=== PATIENT | male | born 2000 | race Caucasian/White ===

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

== ENCOUNTER 2022-01-11 00:24 | Inpatient (IN) | payer MEDICAID ==
[~2022-01-11] VITALS: Ht 185.4 cm; Wt 75.9 kg
[2022-01-11] VITALS (657 sets, daily range): BP systolic 17–108; BP diastolic 44–78; PULSE 75–81; TEMP 37; O2SAT 50–100
[~2022-01-11 00:24] MED LIST changes: +ATARAX 25MG25 MG/TAB PO
[2022-01-11 00:42] LABS: HEMATOCRIT 45.9 % (36.0-47.0); HEMOGLOBIN 13.8 g/dl (12.5-16.1); MEAN CELL VOLUME 101 fl (80.0-95.0); MEAN CORPUSCULAR HEMOGLOBIN 30 pg (26-32); MEAN CORPUSCULAR HGB CONC 30 g/dl (33.0-37.0); MEAN PLATELET VOLUME 10.2 fl (7.4-10.4); PLATELET COUNT 180 K/mm3 (130-400); RED BLOOD COUNT 4.54 M/mm3 (4.20-5.60); REDCELL DISTRIBUTION WIDTH-CV 12.4 % (11.5-14.5)
[2022-01-11 00:57] LABS: ALBUMIN 3.5 gm/dL (3.5-5.0); BILIRUBIN,TOTAL 0.6 mg/dL (0.2-1.2); CREATININE, serum 1.65 mg/dL (0.72-1.25); POTASSIUM 3.7 mmol/L (3.5-4.5); TOTAL PROTEIN 6.2 gm/dL (6.2-8.1)
[2022-01-11 01:06] LABS: TROPONIN-I 1.351 ng/mL (0.00-0.033)
[2022-01-11 01:08] LABS: INR 1.5 (0.8-3.0); PROTHROMBIN TIME 16.2 SECONDS (9.7-12.8)
[2022-01-11 01:11] LABS: PARTIAL THROMBOPLASTIN TIME 58.8 SECONDS (26.0-37.0)
[2022-01-11 01:45] LABS: BAND 2 % (0-10); EOSINOPHIL 2 % (0-4); LYMPHOCYTE 77 % (20.0-51.0); NEUTROPHILS 14 % (42.0-75.2); PLATELET ESTIMATE NORMAL (NORMAL)
[2022-01-11 01:48] LABS: ARTERIAL BLD GAS O2 SATURATION 98.5 % (92-100); ARTERIAL BLD GAS TCO2 CT 6.8; ARTERIAL BLOOD GAS BASE EXCESS -32.3 (-2-2); ARTERIAL BLOOD GAS HCO3 5.3 meq/L (22-26); ARTERIAL BLOOD GAS PCO2 48.5 mmHg (35-45)
[2022-01-11 01:49] LABS: ARTERIAL BLOOD GAS PO2 250.2 mmHg (80-100); ARTERIAL BLOOD GAS pH 6.66 (7.35-7.45)
[2022-01-11 03:34] LABS: ARTERIAL BLD GAS O2 SATURATION 99.5 % (92-100); ARTERIAL BLD GAS TCO2 CT 15.8; ARTERIAL BLOOD GAS BASE EXCESS -11.3 (-2-2); ARTERIAL BLOOD GAS HCO3 14.7 meq/L (22-26); ARTERIAL BLOOD GAS PCO2 34.4 mmHg (35-45); ARTERIAL BLOOD GAS pH 7.25 (7.35-7.45)
[2022-01-11 03:38] LABS: ARTERIAL BLOOD GAS PO2 404.9 mmHg (80-100)
--- NOTE | 2022-01-11 04:35 | NUR ---
Patient arrived to unit accompanied by RT and Jenny, ED RN. Patient VSS upon arrival. Patient intubated with 7.0 ETT on AC mode with 400TV, peep of 6, fiow of 40% and RR of 16. ETT at 26 at the teeth. OG clamped [place] catheter patent to dependent drainage with clear yellow urine noted. Amio gtt running at 16.7mls/hr, propofol gtt running at 4mls/hr, bicarb gtt at 150mls/hr and levophed gtt running at 28.8mls/hr. Patient has 20g in LAC and RAC with IO in RLA and RIJ central line. Patient is unable to follow commands and does not respond to gag reflex or pain stimulation. Patient has petechia present on face and eyes. Ligature fernando noted around neck d/t attempted suicide by hanging. Patient grandmother and aunt at bedside. Assessment and admission intake complete at this time. Will resume care of patient.
--- NOTE | 2022-01-11 05:20 | NUR ---
[facility] notified of pt status. TN will follow. Reference #[id number].
[2022-01-11 06:17] LABS: ALBUMIN 4.1 gm/dL (3.5-5.0); CALCIUM 7.5 mg/dL (8.4-10.2); CREATININE, serum 1.52 mg/dL (0.72-1.25); MAGNESIUM 2.5 mg/dL (1.7-2.2); PHOSPHOROUS 6.5 mg/dL (2.3-4.7); POTASSIUM 5.3 mmol/L (3.5-4.5); TOTAL PROTEIN 7.2 gm/dL (6.2-8.1)
--- NOTE | 2022-01-11 06:44 | NUR ---
Sedation vacation not complete at this time d/t patient being unstable and intubated for less than 12 hours.
--- NOTE | 2022-01-11 06:50 | NUR ---
Suicide care plan process interventions completed at this time d/t being unable to properly assess patient d/t intubation and sedation status. Patient also exhibits zero response to stimulation GCS of 2 at this time.
--- NOTE | 2022-01-11 09:26 | NUR ---
idea worker met with patient's grandmother, Alberta, who is at bedside and offered emotional support. Worker was asked to cancel Mile's (patient's mother) surgery that was scheduled for this morning.
[2022-01-11 09:43] LABS: BASO # 0.1 K/mm3 (0.0-0.2); BASO % 0.4 % (0.0-2.0); EOS # 0.1 K/mm3 (0.0-0.7); EOS % 0.3 % (0.0-4.0); GRAN # 27.3 K/mm3 (1.4-6.5); GRAN % 88.3 % (42.2-75.2); LYMPH # 1.9 K/mm3 (1.2-3.4); LYMPH % 6.1 % (20.0-51.0); MEAN CORPUSCULAR HGB CONC 34 g/dl (33.0-37.0); MONO % 3.4 % (1.7-9.3); PLATELET COUNT 268 K/mm3 (130-400); RED BLOOD COUNT 5.67 M/mm3 (4.20-5.60); REDCELL DISTRIBUTION WIDTH-CV 12.8 % (11.5-14.5)
[2022-01-11 09:47] LABS: HEMOGLOBIN 17.1 g/dl (12.5-16.1); MEAN CELL VOLUME 90 fl (80.0-95.0); MEAN CORPUSCULAR HEMOGLOBIN 30 pg (26-32)
[2022-01-11 09:49] LABS: ARTERIAL BLD GAS O2 SATURATION 98.9 % (92-100); ARTERIAL BLD GAS TCO2 CT 20.3; ARTERIAL BLOOD GAS HCO3 19.4 meq/L (22-26); ARTERIAL BLOOD GAS PCO2 29.2 mmHg (35-45); ARTERIAL BLOOD GAS pH 7.44 (7.35-7.45)
[2022-01-11 09:50] LABS: ARTERIAL BLOOD GAS PO2 144.8 mmHg (80-100)
[2022-01-11 10:07] LABS: HEMATOCRIT 49.1 % (36.0-47.0); HEMOGLOBIN 17.4 g/dl (12.5-16.1)
[2022-01-11 10:20] LABS: CALCIUM 7.5 mg/dL (8.4-10.2); CREATININE, serum 1.64 mg/dL (0.72-1.25); POTASSIUM 3.7 mmol/L (3.5-4.5)
[2022-01-11 10:22] LABS: BAND 26 % (0-10); LYMPHOCYTE 13 % (20.0-51.0); NEUTROPHILS 62 % (42.0-75.2); PLATELET ESTIMATE NORMAL (NORMAL)
--- NOTE | 2022-01-11 11:12 | NUR ---
Miller Apprentice followed up with Alberta, patient's grandmother who is at bedside to offer emotional support as well as establish legal next of kin. Alberta advised that she and patient's aunt, Cristiana were patient's legal guardians when he was a child. Alberta advised nothing was ever filed with the court to establish guardianship as an adult. BRENDA advised Alberta that per the [place] Guardianship Program, unless something was filed when patient turned 20, they were no longer patient's legal guardian and Alberta verbalized understanding. BRENDA advised this meant patient's mother, Mile would be patient's legal next of kin and Alberta verbalized understanding. BRENDA updated RN and ICU Neurology Physician Assistant.
[2022-01-11 14:38] LABS: COLLECTION METHOD CATHETER
[2022-01-11 14:40] LABS: HEMATOCRIT 49.9 % (36.0-47.0); HEMOGLOBIN 17.4 g/dl (12.5-16.1)
[2022-01-11 14:47] LABS: MUCOUS Present (NOT PRESENT); PH 5 (5-8); SQUAMOUS EPITHELIAL None Seen /hpf (0-10); URINE APPEARANCE Cloudy (CLEAR/HAZY); URINE BACTERIA None Seen /hpf (NONE SEEN); URINE BILIRUBIN Negative (NEGATIVE); URINE BLOOD 3+ (NEGATIVE); URINE COLOR Amber (YELLOW); URINE GLUCOSE 2+ (NEGATIVE); URINE KETONE Negative (NEGATIVE); URINE LEUKOCYTE ESTERASE Negative (NEGATIVE); URINE NITRATE Negative (NEGATIVE); URINE PROTEIN(semi-quant) 3+ (NEGATIVE); URINE RBC 20-50 /hpf (0-2); URINE UROBILINOGEN Negative (NEGATIVE)
[2022-01-11 14:56] LABS: CALCIUM 7.6 mg/dL (8.4-10.2); CREATININE, serum 1.53 mg/dL (0.72-1.25); POTASSIUM 3.7 mmol/L (3.5-4.5)
[2022-01-11 14:57] LABS: TRICYCLIC ANTIDEPRESS URINE NEGATIVE
[2022-01-11 14:57] LABS: ARTERIAL BLD GAS O2 SATURATION 99.5 % (92-100); ARTERIAL BLD GAS TCO2 CT 19.8; ARTERIAL BLOOD GAS BASE EXCESS -2.1 (-2-2); ARTERIAL BLOOD GAS PCO2 25.7 mmHg (35-45); ARTERIAL BLOOD GAS pH 7.49 (7.35-7.45)
[2022-01-11 14:58] LABS: ARTERIAL BLOOD GAS PO2 277.4 mmHg (80-100)
--- NOTE | 2022-01-11 16:30 | NUR ---
Patient's grandmother Alberta asks this author if the patient's mother can give decision making rights to herself or the patient's aunt, Diaz. During conversation the patient's mother entered room & Alberta stopped the conversation. This author will seek expert advice on decision making capacity for this situation. 1750 - This author discussed case with senior branch [facility]. Patient's mother can reliquinsh decision making rights & assign to another person. Mother must verbalize this to two hospital witnesses & may change her mind on reliquishment at anytime. Hospital witnesses must document the conversation each time. If the patient's mother is not able to be reached then the patient's grandmother or aunt may make decisions in mother's absence based on previous statement. 1820 - Unable to update patient's grandmother on decision making hierarchy. Update provided with patient's aunt, Diaz in private. Understanding expressed. Offered support & discussed visitation plan for the evening. [facility] department traffic freight router.
[2022-01-11 17:40] LABS: CALCIUM 7.4 mg/dL (8.4-10.2); CREATININE, serum 1.84 mg/dL (0.72-1.25); POTASSIUM 4.5 mmol/L (3.5-4.5)
--- NOTE | 2022-01-11 18:10 | NUR ---
PATIENT'S MOTHER, XIOMARA, GIVES PERMISSION FOR HER SISTER, KEENA AND HER MOTHER, KIRSTEN, TO MAKE DECISIONS REGARDING HER SON'S CARE. THIS DIRECTION WAS GIVEN VERBALLY TO THIS RN AND YASEMIN Evans RN
--- NOTE | 2022-01-11 18:10 | NUR ---
PTS MOTHER, XIOMARA, STATES THAT SHE WISHES FOR HER SISTER KEENA AND MOTHER KIRSTEN TO MAKE DECISIONS FOR PATIENT IN THE EVENT THAT SHE IS NOT AVAILABLE. THIS RN AND DAYDAY Cee RN PRESENT IN ROOM
--- NOTE | 2022-01-11 20:00 | NUR ---
Assessment complete and charted. Patient nonresponsive, no coughing against ventilator, no movement with repositioning, no arousal to sternal rub. Pupils pinpoint nonreactive. Rectal tube with loose liquid black stool present. Patient having increased oral secretions. OG clamped. Spoke with [facility]jo [facility] to start OG to LIS. Immediate 200 mls out of OG. Will continue with LIS and monitor output.
[2022-01-11 20:07] LABS: HEMATOCRIT 49.2 % (36.0-47.0)
[2022-01-11 20:21] LABS: CREATININE, serum 1.99 mg/dL (0.72-1.25); POTASSIUM 4.4 mmol/L (3.5-4.5)
[2022-01-11 22:10] LABS: HEMOGLOBIN 16.7 g/dl (12.5-16.1)
[2022-01-11 22:28] LABS: CALCIUM 6.6 mg/dL (8.4-10.2); CREATININE, serum 1.82 mg/dL (0.72-1.25)
[2022-01-11 22:39] LABS: ARTERIAL BLD GAS O2 SATURATION 98.4 % (92-100); ARTERIAL BLD GAS TCO2 CT 19.4; ARTERIAL BLOOD GAS BASE EXCESS -5.2 (-2-2); ARTERIAL BLOOD GAS HCO3 18.4 meq/L (22-26); ARTERIAL BLOOD GAS PCO2 31.6 mmHg (35-45); ARTERIAL BLOOD GAS pH 7.38 (7.35-7.45)
[2022-01-11 22:41] LABS: ARTERIAL BLOOD GAS PO2 123.9 mmHg (80-100)
[2022-01-12] VITALS (986 sets, daily range): BP systolic 88–160; BP diastolic 61–113; PULSE 88–189; TEMP 98.6–99.1; O2SAT 55–100
[2022-01-12 02:04] LABS: HEMATOCRIT 49.7 % (36.0-47.0); HEMOGLOBIN 17.3 g/dl (12.5-16.1)
[2022-01-12 02:20] LABS: CALCIUM 6.9 mg/dL (8.4-10.2); CREATININE, serum 1.52 mg/dL (0.72-1.25); POTASSIUM 4.1 mmol/L (3.5-4.5)
--- NOTE | 2022-01-12 03:40 | NUR ---
ALARMS TESED AND WORKING. FAMILY X 1 AT BEDSIDE.
[2022-01-12 05:52] LABS: ARTERIAL BLD GAS TCO2 CT 18.7; ARTERIAL BLOOD GAS BASE EXCESS -5.6 (-2-2); ARTERIAL BLOOD GAS HCO3 17.8 meq/L (22-26); ARTERIAL BLOOD GAS PCO2 30.5 mmHg (35-45); ARTERIAL BLOOD GAS PO2 81.3 mmHg (80-100); ARTERIAL BLOOD GAS pH 7.38 (7.35-7.45)
[2022-01-12 06:17] LABS: HEMATOCRIT 50.2 % (36.0-47.0); MEAN CELL VOLUME 89 fl (80.0-95.0); MEAN CORPUSCULAR HEMOGLOBIN 30 pg (26-32); MEAN CORPUSCULAR HGB CONC 34 g/dl (33.0-37.0); MEAN PLATELET VOLUME 9.9 fl (7.4-10.4); PLATELET COUNT 234 K/mm3 (130-400); RED BLOOD COUNT 5.63 M/mm3 (4.20-5.60); REDCELL DISTRIBUTION WIDTH-CV 13.1 % (11.5-14.5)
[2022-01-12 06:25] LABS: INR 2.3 (0.8-3.0); PROTHROMBIN TIME 26.2 SECONDS (9.7-12.8)
[2022-01-12 06:31] LABS: ALBUMIN 3.2 gm/dL (3.5-5.0); BILIRUBIN,TOTAL 0.8 mg/dL (0.2-1.2); CALCIUM 7.1 mg/dL (8.4-10.2); CREATININE, serum 1.5 mg/dL (0.72-1.25); MAGNESIUM 1.8 mg/dL (1.7-2.2); PHOSPHOROUS 4.1 mg/dL (2.3-4.7); POTASSIUM 4.1 mmol/L (3.5-4.5); TOTAL PROTEIN 5.9 gm/dL (6.2-8.1)
[2022-01-12 06:39] LABS: BAND 26 % (0-10); LYMPHOCYTE 10 % (20.0-51.0); NEUTROPHILS 58 % (42.0-75.2); PLATELET ESTIMATE NORMAL (NORMAL)
--- NOTE | 2022-01-12 07:12 | NUR ---
Report given to YUDI Porras
[2022-01-12 07:59] LABS: PATHOLOGY DIFF REVIEW OK +
[2022-01-12 08:21] LABS: CREATININE, serum 1.43 mg/dL (0.72-1.25); POTASSIUM 4.3 mmol/L (3.5-4.5)
--- NOTE | 2022-01-12 10:00 | NUR ---
REPORT RECEIVED FROM AUDREY BAGLEY. CARE ASSUMED. AUNTS BEDSIDE. VSS. WILL CONTINUE TO [facility].
[2022-01-12 11:02] LABS: CALCIUM 7.2 mg/dL (8.4-10.2); CREATININE, serum 1.45 mg/dL (0.72-1.25); POTASSIUM 4.2 mmol/L (3.5-4.5)
--- NOTE | 2022-01-12 12:13 | NUR ---
NOTIFIED OF HTN. ORDER TO INCREASE PROPOFOL. IF BP STILL ELEVATED AFTER INCREASES OF PROPOFOL WILL START VERSED DRIP. IF VERSED UP TO 5MG/HR AND PT STILL HYPERTENSIVE WILL CONSIDER IV METOPROLOL.
[2022-01-12 13:38] LABS: CALCIUM 7.3 mg/dL (8.4-10.2); CREATININE, serum 1.5 mg/dL (0.72-1.25); POTASSIUM 4.4 mmol/L (3.5-4.5)
--- NOTE | 2022-01-12 14:16 | NUR ---
PT HAD BP'S IN THE 80'S. LEVO RESTARTED AT 0.3MCG. ABOUT 10 MINS LATER HR JUMP TO 200. LEVO STOPPED AND PROPOFOL INCREASED. PT NOW SR AT 107, AND BP 115/67. AND NOTIFIED.
[2022-01-12 16:44] LABS: CALCIUM 7.6 mg/dL (8.4-10.2); CREATININE, serum 1.42 mg/dL (0.72-1.25); POTASSIUM 4.4 mmol/L (3.5-4.5)
--- NOTE | 2022-01-12 19:26 | NUR ---
Alarms tested and working. RN at bedside, oral care done at this time. Family X4 at bedside.
[2022-01-12 19:57] LABS: CALCIUM 7.8 mg/dL (8.4-10.2); CREATININE, serum 1.35 mg/dL (0.72-1.25); PHOSPHOROUS 3.2 mg/dL (2.3-4.7); POTASSIUM 4.6 mmol/L (3.5-4.5)
--- NOTE | 2022-01-12 20:29 | NUR ---
Assessment complete and charted. Patient started on versed and propofol increased due to tachycardia. Family at bedside. Call light in reach.
[2022-01-12 22:55] LABS: CALCIUM 7.4 mg/dL (8.4-10.2); CREATININE, serum 1.29 mg/dL (0.72-1.25); POTASSIUM 4.4 mmol/L (3.5-4.5)
[2022-01-13] VITALS (1045 sets, daily range): BP systolic 79–146; BP diastolic 52–93; PULSE 91–198; TEMP 97.2–99.7; O2SAT 83–100
--- NOTE | 2022-01-13 01:35 | NUR ---
Patient went into SVT at 0116. Sustained for 11 mintues. Spoke with Jojo NORRIS and cardiology Dr. Irwin. Started on esmolol.
--- NOTE | 2022-01-13 01:37 | NUR ---
Patient BP do not tolerate esmolol. Gtt stopped at this time. Jjoo NORRIS aware.
--- NOTE | 2022-01-13 01:46 | NUR ---
CALLED AWAY FOR EMERGENCY.
--- NOTE | 2022-01-13 01:54 | NUR ---
Duoneb not given at this time per pt condition. Pt HR has increased as high as 190 in the last hour.
--- NOTE | 2022-01-13 05:47 | NUR ---
Pupils unequal large nonreactive. Jojo NORRIS contacted and CT ordered.
[2022-01-13 05:52] LABS: HEMATOCRIT 43.4 % (36.0-47.0); MEAN CELL VOLUME 89 fl (80.0-95.0); MEAN CORPUSCULAR HEMOGLOBIN 30 pg (26-32); MEAN CORPUSCULAR HGB CONC 34 g/dl (33.0-37.0); MEAN PLATELET VOLUME 10.5 fl (7.4-10.4); PLATELET COUNT 151 K/mm3 (130-400); RED BLOOD COUNT 4.87 M/mm3 (4.20-5.60); REDCELL DISTRIBUTION WIDTH-CV 13.5 % (11.5-14.5)
[2022-01-13 05:56] LABS: HEMOGLOBIN 14.7 g/dl (12.5-16.1)
[2022-01-13 06:05] LABS: ALBUMIN 2.8 gm/dL (3.5-5.0); BILIRUBIN,TOTAL 0.8 mg/dL (0.2-1.2); CALCIUM 7.7 mg/dL (8.4-10.2); CREATININE, serum 1.14 mg/dL (0.72-1.25); PHOSPHOROUS 1.5 mg/dL (2.3-4.7); POTASSIUM 4.1 mmol/L (3.5-4.5); TOTAL PROTEIN 5.2 gm/dL (6.2-8.1)
[2022-01-13 06:20] LABS: BAND 37 % (0-10); LYMPHOCYTE 14 % (20.0-51.0); NEUTROPHILS 43 % (42.0-75.2)
[2022-01-13 06:21] LABS: PLATELET ESTIMATE NORMAL (NORMAL)
--- NOTE | 2022-01-13 07:29 | NUR ---
Report given to YUDI Porras. Patient unable to regulate VS during night. Patient temp on rectal probe flucutated between 100.6 and 97.0 throughout night. Blood pressures ranging from 70s/40s to 190s/110s. Patient also had runs of SVT during night requiring short term emsolol gtt. Patient pupils were found to be dilated and unequal this AM. Hospitalist notified and seen patient at bedside. CT scan ordered. Patient remains unresponsive to all stimuli. Respiratory rate 24-29 throughout night. Minimal urine output during night. Urine tea colored. Grandmother remained at beside. Grandmother asked "what future may look like" if they continue cares. All questioned answered. All updateds regarding patient status were provided to Jojo NORRIS.
--- NOTE | 2022-01-13 11:17 | NUR ---
Pt's mother Mile on phone stated "I relinquish all decision making for Celestine and give it to my mother Alberta" - YUDI Cruz, MD Francisco, BRENDA Tate and myself in room at the time to confirm. Pt's grandmother Alberta informed MD Luca at about pt's drivers license indicating Celestine's wish to be an organ donor. [facility] team notified.
--- NOTE | 2022-01-13 12:00 | NUR ---
Aristides from the [facility] team phoned in to provide update and orders: discontinue sedation so that neurological assessment could be completed when the team arrives here at about 1330 today
--- NOTE | 2022-01-13 12:07 | NUR ---
Initial visit: Oracle Ebs Developer: Family requested Stunt Man to offer prayer and God's love for Celestine. Stunt Man prayed, offered "The Lord's Prayer," and The Psalm. Stunt Man listened and offered empathy and kindness.
--- NOTE | 2022-01-13 13:25 | NUR ---
SW myself, Nancy BAGLEY, eVrn BAGLEY, Dr. Arlene LOCKE, witnessed via phone, Mother Mile informing care team that the she religuish her rights to Alberta for pt.
--- NOTE | 2022-01-13 14:21 | NUR ---
[facility] present Pt's grandmother/decision-maker Alberta at bedside
[2022-01-13 17:37] LABS: HEMATOCRIT 41.8 % (36.0-47.0); HEMOGLOBIN 14.1 g/dl (12.5-16.1); MEAN CELL VOLUME 89 fl (80.0-95.0); MEAN CORPUSCULAR HEMOGLOBIN 30 pg (26-32); MEAN CORPUSCULAR HGB CONC 34 g/dl (33.0-37.0); MEAN PLATELET VOLUME 10.7 fl (7.4-10.4); PLATELET COUNT 137 K/mm3 (130-400); RED BLOOD COUNT 4.69 M/mm3 (4.20-5.60); REDCELL DISTRIBUTION WIDTH-CV 13.7 % (11.5-14.5)
[2022-01-13 17:48] LABS: INR 1.7 (0.8-3.0); PROTHROMBIN TIME 19.2 SECONDS (9.7-12.8)
[2022-01-13 18:07] LABS: ALBUMIN 2.7 gm/dL (3.5-5.0); BILIRUBIN,TOTAL 0.9 mg/dL (0.2-1.2); MAGNESIUM 2.2 mg/dL (1.7-2.2); TOTAL PROTEIN 4.8 gm/dL (6.2-8.1)
[2022-01-13 18:08] LABS: BAND 47 % (0-10); LYMPHOCYTE 11 % (20.0-51.0); METAMYELOCYTE 1 % (0-0); NEUTROPHILS 38 % (42.0-75.2); PLATELET ESTIMATE NORMAL (NORMAL); TOXIC GRANULATION PRESENT
[2022-01-13 18:21] LABS: BILIRUBIN,DIRECT 0.5 mg/dL (0.0-0.5)
--- NOTE | 2022-01-13 19:00 | NUR ---
Received report from YUDI Porras.
--- NOTE | 2022-01-13 19:30 | NUR ---
Patient resting quietly in bed. Remains on ventilator. All vitals within normal limits. Continues to receive amiodarone, esmolol, and propofol drips. D5W infusing at 75 mL/hr. Patient's family at bedside. Questions encouraged and answered. Bed in lowest position, all alarms on.
[2022-01-13 20:12] LABS: COLLECTION METHOD CATHETER
[2022-01-13 20:22] LABS: AMORPHOUS CRYSTAL Present (NOT PRESENT); MUCOUS Present (NOT PRESENT); PH 5 (5-8); SQUAMOUS EPITHELIAL None Seen /hpf (0-10); URINE APPEARANCE Turbid (CLEAR/HAZY); URINE BACTERIA Moderate /hpf (NONE SEEN); URINE BILIRUBIN Negative (NEGATIVE); URINE BLOOD 3+ (NEGATIVE); URINE COLOR Yellow (YELLOW); URINE GLUCOSE Negative (NEGATIVE); URINE KETONE Negative (NEGATIVE); URINE LEUKOCYTE ESTERASE Trace (NEGATIVE); URINE NITRATE Negative (NEGATIVE); URINE PROTEIN(semi-quant) Negative (NEGATIVE); URINE RBC >50 /hpf (0-2); URINE UROBILINOGEN Negative (NEGATIVE)
[2022-01-14] VITALS (581 sets, daily range): BP systolic 141–164; BP diastolic 78–120; PULSE 85–96; TEMP 97.9–98.5; O2SAT 97–100
[2022-01-14 00:55] LABS: ALBUMIN 2.7 gm/dL (3.5-5.0); BILIRUBIN,TOTAL 0.8 mg/dL (0.2-1.2); MAGNESIUM 2.2 mg/dL (1.7-2.2); TOTAL PROTEIN 5.5 gm/dL (6.2-8.1)
[2022-01-14 00:57] LABS: HEMATOCRIT 40.5 % (36.0-47.0); HEMOGLOBIN 13.9 g/dl (12.5-16.1); MEAN CELL VOLUME 89 fl (80.0-95.0); MEAN CORPUSCULAR HEMOGLOBIN 31 pg (26-32); MEAN CORPUSCULAR HGB CONC 34 g/dl (33.0-37.0); MEAN PLATELET VOLUME 10.6 fl (7.4-10.4); PLATELET COUNT 123 K/mm3 (130-400); RED BLOOD COUNT 4.54 M/mm3 (4.20-5.60); REDCELL DISTRIBUTION WIDTH-CV 13.7 % (11.5-14.5)
[2022-01-14 01:06] LABS: INR 1.6 (0.8-3.0); PROTHROMBIN TIME 17.7 SECONDS (9.7-12.8)
[2022-01-14 01:37] LABS: BILIRUBIN,DIRECT 0.4 mg/dL (0.0-0.5)
[2022-01-14 01:51] LABS: BAND 24 % (0-10); LYMPHOCYTE 1 % (20.0-51.0); NEUTROPHILS 72 % (42.0-75.2)
[2022-01-14 01:52] LABS: METAMYELOCYTE 1 % (0-0); PLATELET ESTIMATE DECREASED (NORMAL)
--- NOTE | 2022-01-14 05:00 | NUR ---
Patient pending organ donation. No sedation vacation performed.
[2022-01-14 06:31] LABS: INR 1.6 (0.8-3.0); PROTHROMBIN TIME 17.5 SECONDS (9.7-12.8)
[2022-01-14 06:38] LABS: HEMOGLOBIN 13.6 g/dl (12.5-16.1); MEAN CELL VOLUME 90 fl (80.0-95.0); MEAN CORPUSCULAR HEMOGLOBIN 30 pg (26-32); MEAN CORPUSCULAR HGB CONC 33 g/dl (33.0-37.0); MEAN PLATELET VOLUME 10.6 fl (7.4-10.4); PLATELET COUNT 134 K/mm3 (130-400); RED BLOOD COUNT 4.55 M/mm3 (4.20-5.60); REDCELL DISTRIBUTION WIDTH-CV 13.8 % (11.5-14.5)
[2022-01-14 06:40] LABS: ALBUMIN 2.8 gm/dL (3.5-5.0); BILIRUBIN,DIRECT 0.4 mg/dL (0.0-0.5); BILIRUBIN,TOTAL 0.6 mg/dL (0.2-1.2); MAGNESIUM 2.3 mg/dL (1.7-2.2); TOTAL PROTEIN 5.7 gm/dL (6.2-8.1)
--- NOTE | 2022-01-14 07:20 | NUR ---
Report given to YUDI García.
--- NOTE | 2022-01-14 07:45 | NUR ---
PT is laying in bed unresponsive on ventilator. VSS. Drips and lines verified. Family member x1 bedside. [place] [facility] present. Patient to head to PACU at noon to begin comfort measures.
[2022-01-14 07:52] LABS: BAND 48 % (0-10); BASOPHIL 1 % (0-2); LYMPHOCYTE 6 % (20.0-51.0); NEUTROPHILS 44 % (42.0-75.2); PLATELET ESTIMATE NORMAL (NORMAL)
[2022-01-14 08:46] LABS: COLLECTION METHOD CATHETER
[2022-01-14 09:02] LABS: PH 5 (5-8); SQUAMOUS EPITHELIAL None Seen /hpf (0-10); URINE APPEARANCE Clear (CLEAR/HAZY); URINE BACTERIA None Seen /hpf (NONE SEEN); URINE BILIRUBIN Negative (NEGATIVE); URINE BLOOD 3+ (NEGATIVE); URINE COLOR Straw (YELLOW); URINE GLUCOSE 3+ (NEGATIVE); URINE KETONE Negative (NEGATIVE); URINE LEUKOCYTE ESTERASE Negative (NEGATIVE); URINE NITRATE Negative (NEGATIVE); URINE PROTEIN(semi-quant) Negative (NEGATIVE); URINE UROBILINOGEN Negative (NEGATIVE); URINE WBC 0-2 /hpf (0-2)
--- NOTE | 2022-01-14 13:03 | NUR ---
1145 - PT HOOKED UP TO TRANSPORT MONITOR. LEFT ICU ENROUTE TO PACU/OR COMFORT CARE MEASURES INITIATED. RT EXTUBATED PT AT 1212. CEASE IN VITAL SIGNS AT 1222. TIME OF . BODY THEN MOVED TO OR FOR ORGAN PROCUREMENT.
== END 2022-01-14 18:12 | disposition expired | DRG 296 ==
LOC: COL.ER 00:24 → ICU 03:00
PROVIDERS: Emergency Medicine; Internal Medicine Pulmonary Disease; Nurse Practitioner Family; Student in an Organized Health Care Education/Training Program; ADMIT Internal Medicine
PROC: 5A1945Z Respiratory Ventilation, 24-96 Consecutive Hours (ICD-10-PCS; principal; 2022-01-11)
PROC: 5A12012 Performance of Cardiac Output, Single, Manual (ICD-10-PCS; 2022-01-11)
PROC: 03HY32Z Insertion of Monitoring Device into Upper Artery, Percutaneous Approach (ICD-10-PCS; 2022-01-12)
PROC: 0BC98ZZ Extirpation of Matter from Lingula Bronchus, Via Natural or Artificial Opening Endoscopic (ICD-10-PCS; 2022-01-13)
PROC: 0BC88ZZ Extirpation of Matter from Left Upper Lobe Bronchus, Via Natural or Artificial Opening Endoscopic (ICD-10-PCS; 2022-01-13)
PROC: 0BC58ZZ Extirpation of Matter from Right Middle Lobe Bronchus, Via Natural or Artificial Opening Endoscopic (ICD-10-PCS; 2022-01-13)
PROC: 0BC68ZZ Extirpation of Matter from Right Lower Lobe Bronchus, Via Natural or Artificial Opening Endoscopic (ICD-10-PCS; 2022-01-13)
DX: I46.9 Cardiac arrest, cause unspecified (principal); J96.01 Acute respiratory failure with hypoxia; E87.2 Acidosis; N17.9 Acute kidney failure, unspecified; G93.1 Anoxic brain damage, not elsewhere classified; R78.81 Bacteremia; I49.01 Ventricular fibrillation; J45.909 Unspecified asthma, uncomplicated; I95.9 Hypotension, unspecified; Z66 Do not resuscitate; T14.91XA Suicide attempt, initial encounter; R74.01 Elevation of levels of liver transaminase levels; I47.1 Supraventricular tachycardia; D72.829 Elevated white blood cell count, unspecified; E87.5 Hyperkalemia; F32.A Depression, unspecified; F41.9 Anxiety disorder, unspecified; X83.8XXA Intentional self-harm by other specified means, initial encounter; Y92.009 Unspecified place in unspecified non-institutional (private) residence as the place of occurrence of the external cause; R73.9 Hyperglycemia, unspecified; F17.210 Nicotine dependence, cigarettes, uncomplicated; Z00.5 Encounter for examination of potential donor of organ and tissue; Z88.5 Allergy status to narcotic agent
CPT/HCPCS: 99223-AI; A4314; C9113; J0171; J0282; J0461; J0690; J1644; J1815; J1953; J2060; J2250; J2270; J2543; J2704; J2930; J7030; J7050; J7060; J7070; J7120; J7131

== ENCOUNTER → 2022-01-14 | Outpatient (REF) | LOC: SDCO 11:11 | DX: Z01.810 Encounter for preprocedural cardiovascular examination (principal) ==